=== PATIENT | female | born 1995 | race Caucasian/White ===

== ENCOUNTER 2024-01-29 17:28 | Emergency (ER) | payer OTHER, SELFPAY ==
[2024-01-29 17:28] VITALS: BP 125/68
--- NOTE | 2024-01-29 17:59 | ED.GENMED ---
History of Present Illness
General
Chief Complaint: Problems
Source: patient
Exam Limitations: none
Time Seen by Provider: 01/29/24 17:53
History of Present Illness
History of Present Illness:
See MDM
Past History
Past History
ED Past Medical History: Other
ED Past Surgical History: None
Social History
Tobacco: Non-smoker
Alcohol: Occasional
Personal: Single
Living: alone
Phy Exam
Physical Exam
Physical Exam:
See MDM
Course
Orders/Labs/Results
Orders:
Orders
01/29/24 17:58
US W Transvaginal Urgent
Reason For Exam: vaginal bleeding, 6wks preg
01/29/24 18:04
Type+Screen Urgent
Complete Blood Count/With Diff Urgent
Comprehensive Metabolic Panel Urgent
HCG, Beta Quantitative [Beta HCG Quantitative] Urgent
Is this a screen?: No
Abnormal Lab Results
01/29/24
18:04
RBC 4.03 L 10^6/uL
(4.20-5.40)
Hct 34.9 L %
(37.0-47.0)
MPV 11.2 H fL
(7.4-10.4)
Absolute Lymphs (auto) 3.7 H 10^3/uL
(1.2-3.4)
Absolute Monos (auto) 0.8 H 10^3/uL
(0.1-0.6)
Potassium 3.3 L mmol/L
(3.5-5.1)
Creatinine 0.5 L mg/dL
(0.6-1.0)
Glucose 116 H mg/dl
(70-99)
01/29/24 18:04
01/29/24 18:04
Vital Signs
Initial and Last Documented VS:
Initial Vital Signs
Temp Pulse Resp BP Pulse Ox
98.7 F 79 18 125/68 100
01/29/24 17:28 01/29/24 17:28 01/29/24 17:28 01/29/24 17:28 01/29/24 17:28
Last Documented Vital Signs
Temp Pulse Resp BP Pulse Ox
98.7 F 79 18 125/68 100
01/29/24 17:28 01/29/24 17:28 01/29/24 17:28 01/29/24 17:28 01/29/24 17:28
Information
Weeks gestation: Weeks: (6)
Location: Location: (unknown)
MDM/Problems Addressed
Differential Diagnosis Includes:
HPI and MDM Narrative:
28-year-old female with G1, P0 at approximate 6 weeks gestation is presenting for reevaluation of pelvic mass. Patient had vaginal bleeding x 1 on . She had ultrasound at outside and was told that she could have a complex pelvic mass. At
that time, patient states her beta quant was 1327. Will repeat ultrasound and repeat beta quant. Patient unsure about her blood type
Physical exam
General: Well appearing and non-toxic
HEENT: protecting airway
Neck: appears supple
CV: No evidence of cyanosis
Resp: No accessory muscle use
Abd: Non-distended. Soft and nontender
Extremities: No deformities
Neuro: alert
Psych: Normal affect
Skin: Intact
Problems Addressed including Acute and Chronic Conditions affecting care:
1. vaginal bleeding
Acuity: acute
Prognosis: stable
Details: We discussed normal bleeding versus ectopic versus miscarriage. Will repeat beta quant and ultrasound. Currently, patient has no abdominal pain
2. [ ]
Acuity: acute
Prognosis: stable
Details:
3. [ ]
Acuity: acute
Prognosis: stable
Details:
4. [ ]
Acuity: acute
Prognosis: stable
Details:
5. [ ]
Acuity:
Prognosis:
Details:
Updates
Case discussed with radiology who indicated that the ultrasound is suspicious for ectopic . This was relayed to OB who also evaluated the ultrasound. Based on how early she is and that she has no pain, it was suggested that she repeat the
ultrasound and beta on Tuesday. Since patient does not have any follow-up, she will have to come back to the emergency department for this testing
Patient understands strict return precaution
Differential Diagnosis (but not limited to): Miscarriage, ectopic
Testing considered: Urinalysis but she denies symptoms
Drug therapy (if applicable): OTC meds, please see d/c instruction regarding Rx drugs
Amount and/or Complexity of Data Reviewed
Clinical info obtained from: Patient
External data reviewed: N/A
Labs I independently reviewed (but not limited to): Beta Quant 3000
Radiology: Ultrasound report reviewed
Pulse Ox: not hypoxic
EKG independently reviewed: N/A
Recycling Operations Manager: N/A
Critical Care: N/A
Risk of Complication:
Social Determinants of health: Good social support
Discussed with other providers: Radiology, OB
Escalation of Care includes Admit/Obs: After being observed in the Emergency Department, pt stable for discharge.
Occasional wrong word or 'sound a like' substitutions may have occurred due to the inherent limitations of voice recognition software. Read the chart carefully and recognize, using context, where substitutions have occurred.
*Critical Care Note
Total Time (30-74mins, 75-104mins- exclusive of procedures): Not Applicable
ED Attending Note
-
Portions of this chart may have been created with voice recognition software.� Occasional wrong word or��sound alike� substitutions may have occurred due to the inherent limitations of voice recognition software.
Discharge Plan
Departure
Patient Disposition: Home (Routine Discharge)
Date of Disposition: 01/29/24
Time of Disposition: 21:24
Patient with high blood pressure during this ER visit?: No
Discharge Problem:
Vaginal bleeding during
Prescriptions:
No Action
norethindrone-e.estradiol-iron [Yvette Fe 1.5/30 (28)] 1 EACH tablet
1 ea PO DAILY
infliximab [Remicade] 100 MG/10 ML recon soln
100 mg IV .EVERY 8 WEEKS
escitalopram oxalate 5 MG tablet
5 mg PO DAILY
Referrals:
Michael Patrick MD [Family Provider] -
Activity Restrictions/Additional Instructions:
As we discussed, your level is increasing as expected but the ultrasound is concerning for an ectopic . The OB was aware you are here today and evaluated the ultrasound. She suggested that you repeat the ultrasound and
level this Tuesday. Knowing that you have not yet followed up with [facility], I understand that it would likely be difficult to have this done as an outpatient. If you cannot see your OB and have this done by Tuesday, please return to the emergency
department. Your level today was 3000.
Please return for any fevers, bleeding or pain.
Interventions
Interventions:
*Risk Screen - Suicide Last Done: 01/29/24 18:01
*General Assessment Last Done: 01/29/24 18:00
*Neglect/Abuse Screening Last Done: 01/29/24 18:01
ED-Female Genitourinary Assessment Last Done: 01/29/24 18:02
Discharge Date and Time
Print Language: UZBEK
[2024-01-29 18:01] VITALS: BMI 22.8
[2024-01-29 18:11] LABS: % Basophils 0.4 % (0-2); % Eosinophils 2.6 % (0-6); % Immature Granulocytes 0.2 % (0-0.5); % Lymphocytes 35.5 % (20.5-51.1); % Monocytes 7.8 % (1.7-9.3); % Neutrophils 53.5 % (42.2-75.2); Absolute Eosinophils 0.3 10^3/uL (0-0.7); Absolute Lymphocytes 3.7 10^3/uL (1.2-3.4); Absolute Monocytes 0.8 10^3/uL (0.1-0.6); Absolute Neutrophils 5.6 10^3/uL (1.4-6.5); Hematocrit 34.9 % (37.0-47.0); Hemoglobin 12.4 g/dL (12.0-16.0); Mean Corp Hgb Conc. 35.5 g/dL (33.0-37.0); Mean Corpuscular Hgb 30.8 pg (27.0-31.0); Mean Corpuscular Volume 86.6 fL (81.0-99.0); Mean Platelet Volume 11.2 fL (7.4-10.4); Nucleated Red Blood Cells % 0 %; Platelet Count 226 10^3/uL (130-400); Red Blood Cell Count 4.03 10^6/uL (4.20-5.40); Red Cell Dist. Width 12.6 % (11.5-14.5); White Blood Cell Count 10.4 10^3/uL (4.8-10.8)
[2024-01-29 18:31] LABS: ALT (SGPT) 17 U/L (0-35); AST (SGOT) 23 U/L (14-36); Albumin 4.3 g/dl (3.5-5.0); Alkaline Phosphatase 58 U/L (38-126); Blood Urea Nitrogen 10 mg/dl (7-17); Calcium 9.2 mg/dl (8.4-10.2); Carbon Dioxide 23 mmol/L (22-30); Chloride 107 mmol/L (98-107); Estimated Creatinine Clearance 122 ml/min; Glucose 116 mg/dl (70-99); Potassium 3.3 mmol/L (3.5-5.1); Sodium 138 mmol/L (135-145); Total Bilirubin 0.6 mg/dl (0.2-1.3); Total Protein 6.8 g/dl (6.3-8.2); eGFR > 60.00
[2024-01-29 21:43] VITALS: BP 99/80
== END 2024-01-29 21:53 | disposition home or self-care (01) ==
LOC: EMR 17:28
PROVIDERS: EMERGENCY PHYSICIAN Student in an Organized Health Care Education/Training Program; FAMILY PHYSICIAN Family Medicine
DX: O20.9 Hemorrhage in early pregnancy, unspecified (principal); Z3A.01 Less than 8 weeks gestation of pregnancy
CPT/HCPCS: 99284; 76801; 76817; 80053; 84702; 85025; 86850; 86900; 86901

== ENCOUNTER 2024-02-01 10:13 | Emergency (ER) | payer OTHER, SELFPAY ==
[2024-02-01 10:22] VITALS: BP 108/76
--- NOTE | 2024-02-01 10:39 | ED.GENMED ---
History of Present Illness
General
Chief Complaint: Problems
Source: patient and records
Time Seen by Provider: 02/01/24 10:29
History of Present Illness
History of Present Illness:
28yo female currently 6 weeks with a history of Crohn's disease presenting for a concern. Patient started having vaginal bleeding last week. She was seen at an ED in the [facility] 5 days ago and had a pelvic ultrasound which
showed a complex cyst vs ectopic of the L ovary. She was discharged and returned to this ED 3 days ago for follow-up. She had repeat testing and pelvic ultrasound revealed 'In the left adnexa inferior to the left ovary, there is a rounded
hypoechoic structure with a slightly thickened peripheral echogenic margin measuring 1.6 x 1.7 x 2 cm. Findings would be deemed suspicious for an ectopic .' Plan was for repeat HCG and ultrasound yesterday. She had an outpatient
quantitative HCG which increased to around 7000. Her OB advised her to go to the ED for evaluation. Patient reports a 'feeling' in her LLQ but she denies any pain. She has no vaginal bleeding currently. No dizziness or syncope. Blood type is B+.
Past History
Past History
ED Past Medical History: Other
ED Past Surgical History: None
Social History
Tobacco: Non-smoker
Alcohol: Occasional
Personal: Single
Living: alone
Phy Exam
General Physical Exam
General Presentation: well appearing and no apparent distress
General age: appears stated age
General Skin: warm and dry
General Habitus: normal
General Mental: alert
General Hydration: appears well hydrated
Cardiovascular Exam
Cardiovascular Exam: regular rate/rhythm and no murmur
Pulmonary Exam
Pulmonary Exam: lungs clear, no respiratory distress, no crackles and no wheezing
Gastrointestinal Exam
Gastrointestinal Exam: non tender, soft and non distended
Skin Exam
Skin Exam: normal color and warm/dry
Psychiatric Exam
Psychiatric Exam: normal mood/affect
Course
Orders/Labs/Results
Orders:
Orders
02/01/24 Lunch
NPO
Allow oral meds: No
Allow clear liquids: No
NPO with Ice Chips: No
02/01/24 10:37
w/ Transvaginal US [US W Transvaginal] Urgent
Comment:
Reason For Exam: F/u suspected ectopic
02/01/24 10:54
Beta HCG Quantitative Urgent
Is this a screen?: No
Complete Blood Count/With Diff Urgent
02/01/24 14:30
Methotrexate Sodium/Pf [Methotrexate] 40 mg Syringe [Syringe Non-Pump] 0 ml IM BID@1430,1431
Abnormal Lab Results
02/01/24
10:54
RBC 4.05 L 10^6/uL
(4.20-5.40)
Hct 34.7 L %
(37.0-47.0)
MPV 11.4 H fL
(7.4-10.4)
02/01/24 10:54
Vital Signs
Initial and Last Documented VS:
Initial Vital Signs
Temp Pulse Resp BP Pulse Ox
98.4 F 83 18 108/76 99
02/01/24 10:22 02/01/24 10:22 02/01/24 10:22 02/01/24 10:22 02/01/24 10:22
Last Documented Vital Signs
Temp Pulse Resp BP Pulse Ox
98.4 F 78 18 121/70 98
02/01/24 10:22 02/01/24 14:47 02/01/24 14:47 02/01/24 14:47 02/01/24 14:47
Information
Weeks gestation: Weeks: (6)
Location: Location: (L ovary, ectopic)
MDM/Problems Addressed
Differential Diagnosis Includes:
28yoF here for f/u of a suspected ectopic . Seen in the ED 3 days ago for the same. Here for repeat testing. Relatively asymptomatic currently. No vaginal bleeding, syncope, abdominal pain. She is afebrile and hemodynamically stable. She is
well appearing in no distress. Abdominal exam is benign. Differential diagnosis includes but is not limited to: ectopic , intrauterine , low clinical suspicion of rupture
Initial ED plan: Check CBC, quantitative HCG, and pelvic ultrasound.
*Critical Care Note
Total Time (30-74mins, 75-104mins- exclusive of procedures): Not Applicable
Update Note
Update Note:
HCG is increasing to 7658 (from 3000 three days ago). Repeat ultrasound today shows findings consistent with a L ectopic . There is a small amount of pelvic free fluid. Case was discussed with OBGYN. Dr. Breaux evaluated patient at bedside.
Plan is for methotrexate administration and discharge. She will need close outpatient f/u and repeat blood work on day 4 and 7. Recommendations discussed with patient and medication administered by nursing staff. Strict ED return precautions were
discussed including severe pain, dizziness, syncope, fevers. Patient discharged in stable condition.
ED Attending Note
-
Portions of this chart may have been created with voice recognition software.� Occasional wrong word or��sound alike� substitutions may have occurred due to the inherent limitations of voice recognition software.
Discharge Plan
Departure
Patient Disposition: Home (Routine Discharge)
Date of Disposition: 02/01/24
Time of Disposition: 14:32
Patient with high blood pressure during this ER visit?: No
Discharge Problem:
Ectopic
Instructions: Methotrexate, Ectopic - Discharge instructions
Prescriptions:
No Action
norethindrone-e.estradiol-iron [Yvette Martinez 1.5 (28)] 1 EACH tablet
1 ea PO DAILY
infliximab [Remicade] 100 MG/10 ML recon soln
100 mg IV .EVERY 8 WEEKS
escitalopram oxalate 5 MG tablet
5 mg PO DAILY
Referrals:
Michael Patrick MD [Family Provider] -
Activity Restrictions/Additional Instructions:
Avoid strenuous activity and intercourse. You will need to have repeat blood work done on Tuesday and Tuesday to follow your HCG levels.
Please follow-up closely with your OBGYN.
Return to the ER with any worsening symptoms, severe pain, dizziness, passing out, fevers.
Interventions
Interventions:
*Risk Screen - Suicide Last Done: 02/01/24 10:25
*General Assessment Last Done: 02/01/24 10:25
*Neglect/Abuse Screening Last Done: 02/01/24 10:25
ED- Fall Risk Assessment Last Done: 02/01/24 13:03
*ED COVID-19 Vaccine History Last Done: 02/01/24 15:04
*Nursing Disposition Last Done: 02/01/24 15:04
ED-Female Genitourinary Assessment Last Done: 02/01/24 13:03
Discharge Date and Time
Discharge Date/Time: 02/01/24 14:50
Print Language: UKRAINIAN
[2024-02-01 11:14] LABS: % Basophils 0.4 % (0-2); % Eosinophils 1.7 % (0-6); % Immature Granulocytes 0.3 % (0-0.5); % Lymphocytes 26.2 % (20.5-51.1); % Monocytes 6.7 % (1.7-9.3); % Neutrophils 64.7 % (42.2-75.2); Absolute Eosinophils 0.2 10^3/uL (0-0.7); Absolute Lymphocytes 2.3 10^3/uL (1.2-3.4); Absolute Monocytes 0.6 10^3/uL (0.1-0.6); Absolute Neutrophils 5.7 10^3/uL (1.4-6.5); Hematocrit 34.7 % (37.0-47.0); Hemoglobin 12.4 g/dL (12.0-16.0); Mean Corp Hgb Conc. 35.7 g/dL (33.0-37.0); Mean Corpuscular Hgb 30.6 pg (27.0-31.0); Mean Corpuscular Volume 85.7 fL (81.0-99.0); Mean Platelet Volume 11.4 fL (7.4-10.4); Nucleated Red Blood Cells % 0 %; Platelet Count 220 10^3/uL (130-400); Red Blood Cell Count 4.05 10^6/uL (4.20-5.40); Red Cell Dist. Width 12.6 % (11.5-14.5); White Blood Cell Count 8.9 10^3/uL (4.8-10.8)
[2024-02-01 12:00] VITALS: BP 111/70
[2024-02-01 13:52] VITALS: BMI 21.3
--- NOTE | 2024-02-01 13:56 | CON.MD ---
Consultation - Medical
-
28yo at 6wks gestation who presents to the ER to f/u after being diagnosed with possible ectopic 3 days ago. Pt was seen in the ER for scant vaginal spotting on 01/28, and had an HCG qn 3000 and US that showed no IUP and possible
ectopic in the left adnexa measuring 1.6 x 1.7 x 2cm. As pt was stable and this was the first data point this , she was asked to come back to the ER for repeat hcg qn and US in 48hrs.
Today, she continues to deny any pain and is not having any bleeding now. HCG has risen to 7658 and US again shows suspicion for left adnexal ectopic , this time measuring 1.5 x 1.1 x 1.4cm, possible YS within, no IUP.
ROS: +as above, o/w neg
Meds: Remicade, PNV
NKDA
PMH: Crohn's
PSH: sinus surgery, fractured finger
ObHx: G1
GynHx: denies STI hx or abn paps
Social: denies T/I, occ etoh
FmHx: non-contributory
PE: VSS- see below
Gen: NAD, WD/WN
Abd: soft, NTTP, ND, no mass
Extr: no c/c/e
Labs: see below
Pelvic US: see below
A/P 28yo with 6wk ectopic in the left adnexa.
Hemodynamically stable and asymptomatic.
Pt counseled on R/B of mgmt options: expectant (not advised) vs. medical mgmt with MTX (to include need for reliable follow-up with her electrical tech for labs; some risk with Remicade for infection, but should be okay to use with caution) vs. surgical mgmt.
Patient desires MTX therapy.
-MTX to be given today: 50mg/m2 IM, based on BSA. ER PA will get accurate weight today. Pharmacy can help calculate dose.
-Pt advised to call her electrical tech at [facility], Dr. Morales Rapp, to establish plan for blood work and follow-up. She should have repeat HCG qn on day 4 (Tuesday) and day 7 (Tuesday next week), and then will need weekly labs until HCG qn is <5. Pt
expressed understanding and is reliable to follow-up.
-Pt advised to avoid strenuous activity and intercourse until ectopic resolves
-ER Return precautions given for pain not controlled with Tylenol, and/or severe pain of any sort, or f/c
-B pos, RhoGAM not indicated
-Pt advised to stop her PNV until ectopic resolves. She should resume taking PNV after ectopic resolves, prior to trying to conceive again.
-Pt advised to seek early confirmation of IUP with subsequent pregnancies, as there is an increased risk of ectopic in future pregnancies
Luly Breaux DO
Vital Signs / Labs
-
Vital Signs and Labs:
Temp Pulse Resp BP Pulse Ox
98.4 F 83 18 111/70 98
02/01/24 10:22 02/01/24 12:00 02/01/24 12:00 02/01/24 12:00 02/01/24 12:00
02/01/24 10:54
02/01/24
10:54
RBC 4.05 L
Hct 34.7 L
MPV 11.4 H
HCG quant: 3000 (01/28) --> 7658 (01/31)
B pos, abs neg
Chem panel 01/29/24: creat 0.5, AST 23, ALT 17
[2024-02-01 14:47] VITALS: BP 121/70
[2024-02-01] MEDS: METHOTREXATE 1.6 MG IM ×2 (14:49→14:53)
== END 2024-02-01 14:50 | disposition home or self-care (01) ==
LOC: EMR 10:13
PROVIDERS: Physician Assistant; EMERGENCY PHYSICIAN Emergency Medicine; FAMILY PHYSICIAN Family Medicine; OTHER PHYSICIAN Obstetrics & Gynecology
DX: O00.90 Unspecified ectopic pregnancy without intrauterine pregnancy (principal); Z3A.01 Less than 8 weeks gestation of pregnancy; O99.611 Diseases of the digestive system complicating pregnancy, first trimester; K50.90 Crohn's disease, unspecified, without complications
CPT/HCPCS: 99284; 96372; 76801; 76817; 84702; 85025; J9260

== ENCOUNTER 2024-02-07 12:10 | Emergency (ER) | payer OTHER, SELFPAY ==
[2024-02-07 12:12] VITALS: BP 113/72
--- NOTE | 2024-02-07 13:01 | ED.GENMED ---
History of Present Illness
<Leta Diaz PA-C - Last Filed: 02/08/24 11:24>
General
Chief Complaint: Problems
Source: patient
Exam Limitations: none
Time Seen by Provider: 02/07/24 12:41
Nursing documentation reviewed up to this point in time: agreed with
History of Present Illness
History of Present Illness:
Patient is a 28-year-old at approximately 7 weeks gestation presenting to the emergency department from her [facility] for further evaluation based on failure to see declining hCG values in setting of known ectopic . Patient was seen in
our emergency department 6 days ago with an hCG value of 7658 and an ultrasound which showed a left adnexal mass concerning for a possible ectopic . Patient was seen by [facility] at that time where it was decided that she would receive IM
methotrexate. Patient follows with [place] [facility] had repeat blood work on both 02/03 and 02/06 with values of14,111 and 14,791 respectively. Patient was sent to the emergency department by her [facility] [employer] for further management, repeat IM methotrexate
for surgical management
Patient is asymptomatic at this time. She denies any bleeding, abdominal pain, lightheadedness, dizziness, or shortness of breath.
Patient's blood type is B+.
Past History
<Leta Diaz PA-C - Last Filed: 02/08/24 11:24>
Past History
ED Past Medical History: Other
ED Past Surgical History: None
Social History
Tobacco: Non-smoker
Alcohol: Occasional
Personal: Single
Living: alone
Review of Systems
<Leta Diaz PA-C - Last Filed: 02/08/24 11:24>
Review of Systems
Allergies reviewed?: Yes
All Other Systems: ROS reviewed and negative except as documented in HPI and ROS
Phy Exam
<Leta Diaz PA-C - Last Filed: 02/08/24 11:24>
Physical Exam
Physical Exam:
Vitals: Patient's vital signs are stable. Afebrile
General: Patient is well appearing, no acute distress. Nontoxic appearing.
Skin: Warm and dry, no rashes or lesions
Head: Normocephalic, atraumatic
Eyes: Sclera nonicteric. EOMs intact. No nystagmus.
Throat: Protecting airway
Neck: Normal ROM, no cervical spine tenderness, no meningismus
Cardiac: Regular rate and rhythm, no murmurs.
Pulm: Normal respiratory effort, no wheezes, rales, rhonchi heard on exam.
Abdomen: Abdomen soft. No abdominal tenderness. No palpable masses.
Extremities: No evidence of cyanosis or edema. Great distal pulses
Neuro: AAOx3. CN II-XII intact. No focal neurologic deficits.
Psychiatric: Normal affect.
Course
<Leta Diaz PA-C - Last Filed: 02/08/24 11:24>
Orders/Labs/Results
Orders:
Orders
02/07/24 14:23
Consult [facility] [[facility] CONSULT] Urgent
Consulting Provider: Heidi Munoz
Was physician already notified: Yes
02/07/24 14:36
Type+Screen Urgent
Complete Blood Count/With Diff Urgent
Comprehensive Metabolic Panel Urgent
02/07/24 16:00
Methotrexate Sodium/Pf [Methotrexate] 41.25 mg Intramuscular Injection 0 ml IM BID@1600,1601
Abnormal Lab Results
02/07/24
14:36
RBC 3.83 L 10^6/uL
(4.20-5.40)
Hgb 11.7 L g/dL
(12.0-16.0)
Hct 32.7 L %
(37.0-47.0)
MPV 11.6 H fL
(7.4-10.4)
Absolute Monos (auto) 0.7 H 10^3/uL
(0.1-0.6)
Glucose 106 H mg/dl
(70-99)
02/07/24 14:36
02/07/24 14:36
Vital Signs
Initial and Last Documented VS:
Initial Vital Signs
Temp Pulse Resp BP Pulse Ox
98.7 F 76 18 113/72 98
02/07/24 12:12 02/07/24 12:12 02/07/24 12:12 02/07/24 12:12 02/07/24 12:12
Last Documented Vital Signs
Temp Pulse Resp BP Pulse Ox
98.7 F 78 17 98/56 100
02/07/24 12:12 02/07/24 16:00 02/07/24 16:00 02/07/24 16:00 02/07/24 16:15
Information
Weeks gestation: Weeks: (7)
Location: Location: (Left adnexa)
<Javier Del Cid, DO - Last Filed: 02/07/24 14:01>
Orders/Labs/Results
Orders:
Orders
02/07/24 14:23
Consult [facility] [[facility] CONSULT] Urgent
Consulting Provider: Heidi Munoz
Was physician already notified: Yes
02/07/24 14:36
Type+Screen Urgent
Complete Blood Count/With Diff Urgent
Comprehensive Metabolic Panel Urgent
02/07/24 16:00
Methotrexate Sodium/Pf [Methotrexate] 41.25 mg Intramuscular Injection 0 ml IM BID@1600,1601
Abnormal Lab Results
02/07/24
14:36
RBC 3.83 L 10^6/uL
(4.20-5.40)
Hgb 11.7 L g/dL
(12.0-16.0)
Hct 32.7 L %
(37.0-47.0)
MPV 11.6 H fL
(7.4-10.4)
Absolute Monos (auto) 0.7 H 10^3/uL
(0.1-0.6)
Glucose 106 H mg/dl
(70-99)
02/07/24 14:36
02/07/24 14:36
Vital Signs
Initial and Last Documented VS:
Initial Vital Signs
Temp Pulse Resp BP Pulse Ox
98.7 F 76 18 113/72 98
02/07/24 12:12 02/07/24 12:12 02/07/24 12:12 02/07/24 12:12 02/07/24 12:12
Last Documented Vital Signs
Temp Pulse Resp BP Pulse Ox
98.7 F 78 17 98/56 100
02/07/24 12:12 02/07/24 16:00 02/07/24 16:00 02/07/24 16:00 02/07/24 16:15
<Leta Diaz PA-C - Last Filed: 02/08/24 11:24>
MDM/Problems Addressed
Differential Diagnosis Includes:
Not limited to: ectopic
MDM/Problems Addressed:
Patient is a 28 at approximately 7 weeks gestation with left adnexal ectopic presenting 6 days s/p MTX injection due to inappropriate decline of HCG levels. Patient tolerated MTX well. Patient asymptomatic and hemodynamically stable.
Abdomen soft and nontender without any palpable masses. Patient follows with [facility]. Reviewed lab results. HCG of 7,658 01/31 prior to IM MTX which has increased to 14,791 today. Did consult OBGYN, Dr. Munoz who came to see patient at
bedside. Options were discussed, repeat IM MTX vs surgical management. Ultimately - it was decided that patient will receive repeat IM MTX. Dose was calculated and ordered by Dr. Munoz. Patient was given lab slips for repeat HCG. Blood type B+- no
indication for rhogam.
Patient received IM MTX. Patient remains hemodynamically stable. Return precautions discussed with patient. Stable for discharge. She will follow-up with her OBGYN.
Chronic conditions affecting care:
N/A
Acute Exacerbation and/or Progression of Chronic Illness:
N/A
<Leta Diaz PA-C - Last Filed: 02/08/24 11:24>
*Pulse Oximetry
Patient hypoxic: no
*EKG
Interpreted by ED Provider?: NA
*Organic Chemistry Teacher Interpretation
Rate: Organic Chemistry Teacher- N/A
*Critical Care Note
Total Time (30-74mins, 75-104mins- exclusive of procedures): Not Applicable
Data Reviewed
Review of Other/Old Records Reveals: Labs (Prior hCG levels), Records (ER visit from 01/31 for ectopic ) and Radiology Studies (US report form 01/31 showing left adnexal mass suspicious for ectopic )
<Leta Diaz PA-C - Last Filed: 02/08/24 11:24>
Patient Management
Discussion with other providers: Cop Winder (OBGYN - Dr. Munoz)
ED Attending Note
<Leta Diaz PA-C - Last Filed: 02/08/24 11:24>
-
Portions of this chart may have been created with voice recognition software.� Occasional wrong word or��sound alike� substitutions may have occurred due to the inherent limitations of voice recognition software.
<Javier Del Cid DO - Last Filed: 02/07/24 14:01>
ED Attending Note
Patient seen and examined by attending physician: Yes
I performed the substantive portion of visit, reviewed & personally made and approve the management plan that is documented in note by myself or SANDY.: Yes
ED Attending Note:
I have seen and evaluated the patient with a [id number] encounter. I have spoken to the advance practicer provider and involved in the medical history, the physical exam, medical decision making.
Evaluation and management service: agree unless noted differently below.
Results interpretation: agree unless noted differently below.
Focused HPI: 28-year-old female presenting back to the emergency department for possible methotrexate. She was diagnosed with ectopic and given dose of methotrexate. Repeat blood work shows that her beta-hCG is continuing to rise. She
denies abdominal pain
Physical exam: Sitting in bed comfortably. No acute distress
Medical Decision Making: Will discuss case with OB in regards to redosing methotrexate versus surgical intervention. Patient is stable
Discharge Plan
Departure
Patient Disposition: Home (Routine Discharge)
Date of Disposition: 02/07/24
Time of Disposition: 16:15
Patient with high blood pressure during this ER visit?: Yes
Discharge Problem:
Ectopic
Instructions: Ectopic ED
Prescriptions:
No Action
norethindrone-e.estradiol-iron [Yvette Fe 1.5 (28)] 1 EACH tablet
1 ea PO DAILY
infliximab [Remicade] 100 MG/10 ML recon soln
100 mg IV .EVERY 8 WEEKS
escitalopram oxalate 5 MG tablet
5 mg PO DAILY
Referrals:
Michael Patrick MD [Family Provider] -
Activity Restrictions/Additional Instructions:
RETURN TO THE EMERGENCY DEPARTMENT WITH ANY ABDOMINAL PAIN, DIZZINESS, LIGHTHEADEDNESS, SHORTNESS OF BREATH, VAGINAL BLEEDING, WORSENING IN CURRENT SYMPTOMS, OR ANY OTHER CONCERNS
-As discussed�it is very importantly follow-up with your [facility] for repeat lab work this week to further trend your HCG level.
-Stay well-hydrated.
Monitor your symptoms closely and return to the emergency department any acute worsening/new symptoms.
Interventions
Interventions:
*Risk Screen - Suicide Last Done: 02/07/24 14:42
*General Assessment Last Done: 02/07/24 16:57
*Neglect/Abuse Screening Last Done: 02/07/24 14:42
ED- Fall Risk Assessment Last Done: 02/07/24 16:57
*ED COVID-19 Vaccine History Last Done: 02/07/24 16:57
*Nursing Disposition Last Done: 02/07/24 16:57
ED-Female Genitourinary Assessment Last Done: 02/07/24 14:01
Discharge Date and Time
Discharge Date/Time: 02/07/24 16:58
Print Language: LATVIAN
[2024-02-07 14:40] VITALS: BMI 22.3
[2024-02-07 14:41] VITALS: BP 97/55
[2024-02-07 14:54] LABS: % Basophils 0.6 % (0-2); % Immature Granulocytes 0.2 % (0-0.5); % Lymphocytes 36.7 % (20.5-51.1); % Monocytes 7.8 % (1.7-9.3); % Neutrophils 51.7 % (42.2-75.2); Absolute Basophils 0.1 10^3/uL (0-0.2); Absolute Eosinophils 0.3 10^3/uL (0-0.7); Absolute Lymphocytes 3.2 10^3/uL (1.2-3.4); Absolute Monocytes 0.7 10^3/uL (0.1-0.6); Absolute Neutrophils 4.4 10^3/uL (1.4-6.5); Hematocrit 32.7 % (37.0-47.0); Hemoglobin 11.7 g/dL (12.0-16.0); Mean Corp Hgb Conc. 35.8 g/dL (33.0-37.0); Mean Corpuscular Hgb 30.5 pg (27.0-31.0); Mean Corpuscular Volume 85.4 fL (81.0-99.0); Mean Platelet Volume 11.6 fL (7.4-10.4); Nucleated Red Blood Cells % 0 %; Platelet Count 212 10^3/uL (130-400); Red Blood Cell Count 3.83 10^6/uL (4.20-5.40); Red Cell Dist. Width 12.5 % (11.5-14.5); White Blood Cell Count 8.6 10^3/uL (4.8-10.8)
[2024-02-07 15:18] LABS: ALT (SGPT) 14 U/L (0-35); AST (SGOT) 22 U/L (14-36); Albumin 4.2 g/dl (3.5-5.0); Alkaline Phosphatase 55 U/L (38-126); Blood Urea Nitrogen 10 mg/dl (7-17); Calcium 9.1 mg/dl (8.4-10.2); Carbon Dioxide 24 mmol/L (22-30); Chloride 107 mmol/L (98-107); Estimated Creatinine Clearance 122 ml/min; Glucose 106 mg/dl (70-99); Potassium 3.9 mmol/L (3.5-5.1); Sodium 138 mmol/L (135-145); Total Bilirubin 0.4 mg/dl (0.2-1.3); Total Protein 6.6 g/dl (6.3-8.2); eGFR > 60.00
[2024-02-07 15:31] VITALS: BP 102/63
[2024-02-07 16:00] VITALS: BP 98/56
--- NOTE | 2024-02-07 16:16 | CON.MD ---
Consultation - Medical
-
28yo with a known left ectopic returns to the ER at the request of her SOFTWARE SECURITY ARCHITECT due to inappropriate HCG changes after receiving methotrexate. Patient had an US on 01/31 that showed a left adnexal soft tissue mass 1.5cm with a yolk sac c/w
an ectopic . She received mtx that day, since then she has followed up with her SOFTWARE SECURITY ARCHITECT Dr. Rapp at [facility] and her labs through their office showed
02/03: 14,111
02/06: 14,791
She was then advised by her physician to return to the ER for mgmt either surgery or repeat MTX dosing. Currently patient denies VB, has NO pelvic pain. No UTI symptoms, normal appetite, denies n/v. Regular BM.
PMHx: Crohn's
PSHx: sinus surgery, fractured finger
POBHx: Prime
PGYNHx: negative
FHx: no contributory
SHx: neg x3
Meds: Remicade, lexapro
All: NKDA
Vitals: 102/63 P76 R18 T98.7 SpO2 100%
Gen: nad aaox3
Abd: soft, non tender, nd, no r/g
CBC: 8.6/11.7/212
AST:22
ALT: 14
Cr: 0.6
A/P: 28yo with Left ectopic
1. Patient with failed first course of MTX. i explained that we would like to see at least a 15% decline in values between day 4 and 7 and her values increased slightly. She is hemodynamically stable and has no acute abdomen. I have NO suspicion for
a ruptured ectopic at this time. However I am slightly concerned with the HCG being this high that a second course of MTX may not be successful. I expressed my concern to the patient, stating that there is a higher failure rate with HCG this high.
That being said, it is not absolutely contraindicated so I can offer a repeat course as an option. Alternatively, we can proceed with surgery which I explained will be attempted laparoscopically with removal of the left tube containing the ectopic.
Patient really wants to avoid surgery and would like try the MTX again. I gave strict instructions on when to return to the ER- any severe pain as this can be a sign of tubal rupture which is a surgical emergency. Also gave her reading material on
medications and activities to avoid after getting this medicine, as well as when she needs to have repeat labs performed. Patient plans to have repeat labs done through her own SOFTWARE SECURITY ARCHITECT office but I did give her script for blood work in case she needs
it.
[2024-02-07] MEDS: METHOTREXATE 1.65 MG IM ×2 (16:37→16:38)
== END 2024-02-07 16:58 | disposition home or self-care (01) ==
LOC: EMR 12:10
PROVIDERS: Physician Assistant; CONSULT PHYSICIAN Obstetrics & Gynecology; EMERGENCY PHYSICIAN Student in an Organized Health Care Education/Training Program; FAMILY PHYSICIAN Family Medicine
DX: O00.80 Other ectopic pregnancy without intrauterine pregnancy (principal); Z3A.01 Less than 8 weeks gestation of pregnancy
CPT/HCPCS: 99284; 96372; 80053; 85025; 86850; 86900; 86901; J9260

== ENCOUNTER 2024-02-12 17:14 | Day surgery (SDC) | payer OTHER, SELFPAY ==
[2024-02-12] VITALS (15 sets, daily range): BP systolic 98–116; BP diastolic 57–89; BMI 24.9
[2024-02-12] MEDS: NSS 1000 IV (12:29)
[2024-02-12 12:42] LABS: % Basophils 0.5 % (0-2); % Eosinophils 2.3 % (0-6); % Immature Granulocytes 0.2 % (0-0.5); % Lymphocytes 34.3 % (20.5-51.1); % Monocytes 6.3 % (1.7-9.3); % Neutrophils 56.4 % (42.2-75.2); Absolute Eosinophils 0.2 10^3/uL (0-0.7); Absolute Monocytes 0.6 10^3/uL (0.1-0.6); Absolute Neutrophils 4.9 10^3/uL (1.4-6.5); Hematocrit 32.9 % (37.0-47.0); Hemoglobin 11.9 g/dL (12.0-16.0); Mean Corp Hgb Conc. 36.2 g/dL (33.0-37.0); Mean Corpuscular Hgb 30.7 pg (27.0-31.0); Mean Platelet Volume 11.3 fL (7.4-10.4); Nucleated Red Blood Cells % 0 %; Platelet Count 197 10^3/uL (130-400); Red Blood Cell Count 3.87 10^6/uL (4.20-5.40); Red Cell Dist. Width 12.5 % (11.5-14.5); White Blood Cell Count 8.7 10^3/uL (4.8-10.8)
[2024-02-12 13:22] LABS: Blood Urea Nitrogen 10 mg/dl (7-17); Calcium 9.3 mg/dl (8.4-10.2); Carbon Dioxide 21 mmol/L (22-30); Chloride 107 mmol/L (98-107); Estimated Creatinine Clearance 122 ml/min; Glucose 127 mg/dl (70-99); Potassium 3.7 mmol/L (3.5-5.1); Sodium 138 mmol/L (135-145); eGFR > 60.00
--- NOTE | 2024-02-12 15:43 | ED.GENMED ---
History of Present Illness
General
Chief Complaint: Problems
Source: patient
Exam Limitations: none
Time Seen by Provider: 02/12/24 12:18
History of Present Illness
History of Present Illness:
28-year-old female history of currently being treated for ectopic . Second dose of methotrexate. Quantitative hCGs are slightly trending down. However today she developed increasing pain in the left lower quadrant/pelvis and increased
bleeding. Moderate bleeding described as a slightly heavy menstrual-like bleeding. No fever chills or other complaints.
Past History
Past History
ED Past Medical History: Other (Known ectopic ) and Other (Crohn's disease)
ED Past Surgical History: None
Social History
Tobacco: Non-smoker
Alcohol: Occasional
Personal: Single
Living: alone
Phy Exam
Physical Exam
Physical Exam:
GENERAL: Alert and oriented in no apparent distress
EYE: Orbits normal.
NECK: Supple
CARDIAC: Regular rate and rhythm without any obvious murmurs.
LUNGS: Clear breath sounds,normal
ABDOMEN: Soft, moderate tenderness left pelvis. No rebound or guarding no mass or hernia.
NEUROLOGICAL: Alert and oriented , grossly non-focal
SKIN: Warm and dry, no rash or lesion, no discoloration, skin intact.
MUSCULOSKELETAL: No edema,no deformity.Good color
PSYCH: Normal and appropriate interaction.
Course
Orders/Labs/Results
Orders:
Orders
02/12/24 12:28
IV Insert/Care/Rem.- Treatment PRN
0.9% Sodium Chloride 1000 ml [Nss] 1,000 ml IV BOLUS
US W Transvaginal Urgent
Reason For Exam: Known left ectopic. Increased pain and bleeding
02/12/24 12:30
Basic Metabolic Panel Urgent
Beta HCG Quantitative Urgent
Is this a screen?: No
Complete Blood Count/With Diff Urgent
02/12/24 12:35
Type+Screen Urgent
02/12/24 Dinner
NPO
Allow oral meds: No
Allow clear liquids: No
02/12/24 15:42
HYDROmorphone [Dilaudid] 0.25 mg IV PACU-Q5MPRN PRN
HYDROmorphone [Dilaudid] 0.5 mg IV PACU-Q5MPRN PRN
Ondansetron Injectable [Zofran] 4 mg IV PACU-ONCEPRN PRN
Prochlorperazine [Compazine] 5 mg IV PACU-ONCEPRN PRN
Notify MD As Directed
Notify physician if: for SDS patients with known or suspected sleep obstructive sleep apnea, monitor in the
PACU.
Notify MD for any apneic/desaturation episodes
O2 Therapy [RESP] Urgent
Titrate/Wean O2 to maintain O2 sat greater than (%): 92
Special Instructions: -Provide supplemental oxygen to achieve O2 sat of 92% or greater.
-After 15 min, may wean O2 and discontinue if patient is able to maintain O2 sat of 92%
or greater during recovery period.
If patient is a discharge home, without oxygen therapy, notify anestheiologist if
unable to maintain O2 SAT of 92% or greater on room air for MD clearance.
02/12/24 15:45
Normosol (Mult Electrolytes) [Normosol-R] 1,000 ml IV PER PROTOCOL
02/12/24 16:03
Acetaminophen 1000MG/100Ml [Ofirmev] 1,000 mg in 100 ml IV ONCE
Acetaminophen IV Indication:: ED Narcotic Naive Pt-ONCE
Abnormal Lab Results
02/12/24
12:30
RBC 3.87 L 10^6/uL
(4.20-5.40)
Hgb 11.9 L g/dL
(12.0-16.0)
Hct 32.9 L %
(37.0-47.0)
MPV 11.3 H fL
(7.4-10.4)
Carbon Dioxide 21 L mmol/L
(22-30)
Glucose 127 H mg/dl
(70-99)
02/12/24 12:30
02/12/24 12:30
Vital Signs
Initial and Last Documented VS:
Initial Vital Signs
Temp Pulse Resp BP Pulse Ox
97.4 F 74 16 104/69 98
02/12/24 12:04 02/12/24 12:04 02/12/24 12:04 02/12/24 12:04 02/12/24 12:04
Last Documented Vital Signs
Temp Pulse Resp BP Pulse Ox
97.4 F 74 16 103/74 99
02/12/24 12:04 02/12/24 12:04 02/12/24 12:04 02/12/24 14:38 02/12/24 14:39
Information
Weeks gestation: Weeks: (11)
Location: Location: (left adnexa)
*Radiology
Radiology exam reviewed: radiology read reviewed (Persistent ectopic)
*Pulse Oximetry
Patient hypoxic: no
*Critical Care Note
Total Time (30-74mins, 75-104mins- exclusive of procedures): Not Applicable
Update Note
Update Note:
Discussed with [employer]OPELLANT ASSEMBLER. Discussed the patient. Patient will go to the OR for persist and ectopic
ED Attending Note
-
Portions of this chart may have been created with voice recognition software.� Occasional wrong word or��sound alike� substitutions may have occurred due to the inherent limitations of voice recognition software.
Discharge Plan
Departure
Patient Disposition: Admit
Date of Disposition: 02/12/24
Time of Disposition: 15:43
Presentation/result/management discussed w/ accepting MD/DO: defour
Discharge Problem:
Ectopic . Failed methotrexate
Prescriptions:
No Action
norethindrone-e.estradiol-iron [Yvette Fe 1.5 ()] 1 EACH tablet
1 ea PO DAILY
infliximab [Remicade] 100 MG/10 ML recon soln
100 mg IV .EVERY 8 WEEKS
escitalopram oxalate 5 MG tablet
5 mg PO DAILY
Referrals:
Michael Patrick MD [Family Provider] -
Interventions
Interventions:
*Risk Screen - Suicide Last Done: 02/12/24 12:38
*General Assessment Last Done: 02/12/24 12:40
*Neglect/Abuse Screening Last Done: 02/12/24 12:38
ED- Fall Risk Assessment Last Done: 02/12/24 12:39
ED-Female Genitourinary Assessment Last Done: 02/12/24 12:22
Discharge Date and Time
Print Language: UZBEK
[2024-02-12] MEDS: OFIRMEV 100 IV (16:09)
--- NOTE | 2024-02-12 16:29 | HP.FOC2 ---
Focused History & Physical
Chief Complaint
HPI:
Chief Complaint: Abdominal pain and bleeding
HPI / Indication for Planned Procedure:
28yo who returns to the ER due to new onset left lower quadrant abdominal pain and moderate-heavy bleeding increasing from previously. She has a known Left ectopic that she has been trying to manage with methotrexate, she got an
initial dose of MTX on 01/31 at which time US showed a 1.5cm left adnexal mass with a yolk sac c/w an ectopic . She then had f/u HCGs with TRANSPORTATION PLANNER at [facility] and they were still trending up 02/03: 14,111. 02/06: 14,791. she was advised to return
to the ER which she did on 02/06. She then got a 2nd dose of MTX on 02/06. At that time she was also offered surgical exploration as her HCG was so high and it was explained that there is a high risk for treatment failure, but she declined and opted
for a 2nd MTX dose. She then had another having HCG yesterday again with her private TRANSPORTATION PLANNER and it was approx 12,000. However today she started with the pain and her bleeding is increasing so she returned to ER.
Relevant Past Medical History: Other (Crohn's)
Relevant Social History: Negative
Relevant Family History: Negative
Relevant Past Surgical History: Positive for (Sinus Surgery, fractured finger)
Review of Systems
Review of Pertinent Systems: All Systems Negative
Medication
See Medication form for detailed medications: Yes
Medication List (including Herbals & OTC):
infliximab 100 mg intravenous solution (Remicade) 100 mg IV Q8W 09/16/21
Medications Reviewed: Yes
Allergies and Reactions
Patient has Allergies: No
Noted Allergies and Reactions:
Allergy/AdvReac Type Severity Reaction Status Date / Time
No Known Allergies Allergy Verified 02/07/24 12:12
Pertinent Physical Exam
All Other Systems: Negative
Abdomen: Other (ttp in the left abdomen)
Diagnosis / Assessment
28yo with Left ectopic s/p 2 doses of Methotrexate
Plan / Procedure
Explained to patient and my concern for persistence and what even appears to be progression of the between her two US and despite the two doses of methotrexate. While her HCGs are finally trending down it is still very high and
while I do not think she has a ruptured tube at this time, I think she is still at very high risk for tubal rupture and I again recommend proceeding with surgical management at this time. Patient now in agreement to proceed. the procedure was
reviewed in detail including risks of bleeding, infection, injury to surrounding structures, need for additional procedure and laparotomy. Post-op expectations also reviewed. consents signed. nurse supervisor insecticide and charge nurse made aware. Currently
2 cases pending in OR, patient is stable enough to wait.
Anesthesia/Sedation to be done by Anesthesia Provider: Yes
Vital Signs and Labs
-
Vital Signs and Labs:
Vital Signs
Temp Pulse Resp BP Pulse Ox
97.4 F 74 16 99/64 99
02/12/24 12:04 02/12/24 16:12 02/12/24 12:04 02/12/24 16:12 02/12/24 16:12
Lab Results
02/12/24 12:30
02/12/24 12:30
Sodium 138 mmol/L (135-145) 02/12/24 12:30
Potassium 3.7 mmol/L (3.5-5.1) 02/12/24 12:30
BUN 10 mg/dl (7-17) 02/12/24 12:30
Glucose 127 mg/dl (70-99) H 02/12/24 12:30
Calcium 9.3 mg/dl (8.4-10.2) 02/12/24 12:30
HCG Quant: 10,148
Imaging Data
-
Pelvic US:
The uterus measures 8.4 x 3.6 x 4.8 cm in size. The endometrium measures 7.7 mm in thickness on the transabdominal images and 6.6 mm in thickness on the transvaginal images. There is no evidence for gestational sac in the endometrial canal.
LEFT OVARY: The left ovary measures 2.8 x 1.6 x 3.3 cm in size on the transabdominal images and 2.4 x 1.7 x 2.9 cm in size on the transvaginal images. There is a 2.3 x 1.8 x 2.5 cm mass in the left adnexa adjacent to the left ovary which has a thick
hyperechoic rim consistent with a left adnexal ectopic . There is a yolk sac within the adnexal ectopic . There is a pole within the gestational sac measuring 0.3 cm in length predicting a gestational age of 6 weeks 0 days.
There is no evidence for heart rate. The wall of the ectopic demonstrates vascularity on color duplex evaluation. There is blood flow within the adjacent left ovary on color duplex evaluation and small follicles in the left ovary.
--- NOTE | 2024-02-12 18:26 | W.SUR.PREOP ---
Pre-Operative Surgical Note
-
I have examined this patient prior to the performance of the scheduled procedure.
The patient's condition is unchanged from the time of the current History and
Physical and the patient is able to undergo the scheduled procedure.
--- NOTE | 2024-02-12 20:31 | W.IMMPOSTOP ---
Surgical Immed Post Op Note
-
Primary Surgeon: Anthony
Assisting Surgeon: n/a
Pre-op Diagnosis: Left Ectopic
Post-op Diagnosis: Same
Procedure Performed: Diagnostic laparoscopy, left salpingectomy
Anesthesia Type: General
Specimen / Cultures: Left fallopian tube with ectopic
Estimated Blood Loss: 3
Complications: none apparent
Operative Findings: 1. moderate amount of blood in vagina, uterus sounded to 9cm 2. Left tube dilated, normal appearing right tube and normal ovaries 3. salpingectomy site hemostatic post procedure
== END 2024-02-12 21:25 | disposition home or self-care (01) ==
LOC: SDS 17:14
PROVIDERS: ATTENDING PHYSICIAN Obstetrics & Gynecology; EMERGENCY PHYSICIAN Emergency Medicine; FAMILY PHYSICIAN Family Medicine
DX: O00.102 Left tubal pregnancy without intrauterine pregnancy (principal)
CPT/HCPCS: 59151; 88305; 76801; 76817; 80048; 84702; 85025; 86850; 86900; 86901; 96361; 96374; 99285; C1776

== ENCOUNTER 2024-04-27 18:45 | Emergency (ER) | payer OTHER, SELFPAY ==
[2024-04-27 18:54] VITALS: BP 136/83
--- NOTE | 2024-04-27 18:55 | ED.GENMED ---
ED Provider Triage
<Melvin Beckman PA-C - Last Filed: 04/27/24 18:59>
-
Patient seen by provider in Triage?: Seen in Triage
Attestation: A medical screening examination has been initiated by a qualified medical provider. Based on the assessment performed at this time, it has been determined that an emergent medical condition may exist and the patient has been informed
that further medical evaluation and possible additional diagnostic testing may be needed.
HPI: Patient presenting to the emergency department for evaluation of persistent left-sided temporal headache that has been ongoing for approximately 1 week. Seen by ENT who wanted patient to obtain a CT scan however patient was having a difficult
time obtaining this and due to persistent pain decided to come to the ER instead. Notes no changes to her symptoms today but does note the pain continues. Reports ENT was wanting a CT scan of the sinuses. CT scan of the head and sinuses ordered.
Patient without any acute neurologic symptoms or vision changes.
GENERAL: Alert , in no apparent distress
EYE: No visual abnormalities.
NECK: Trachea midline
ENT: No visible abnormalities.
LUNGS: No acute respiratory distress
NEUROLOGICAL: Alert and oriented
SKIN: Skin intact. No visible changes.
MUSCULOSKELETAL: Moving extremities normally
PSYCH: Normal and appropriate interaction.
This is a medical evaluation conducted in person to initiate diagnostic evaluation and provide initial therapeutics. Please see further documentation by the treating clinician.
History of Present Illness
<Melvin Beckman PA-C - Last Filed: 04/27/24 18:59>
General
Chief Complaint: Headache
Time Seen by Provider: 04/27/24 20:44
<Sami Walden DO - Last Filed: 04/27/24 21:09>
History of Present Illness
History of Present Illness:
TIME OF INITIAL ENCOUNTER: 8:45 PM
HPI: Patient was seen by ENT who recommended CT imaging for further evaluation and the patient is already on steroids and Augmentin. She has been having left-sided head/facial pain for the past week. The pain radiates down to the left side of the
jaw. She has not been sleeping well and feels that her symptoms are worsening so she came to the emergency department. She does describe the discomfort as electrical shock sensation to left side of the face
EXAM:
GENERAL: Well appearing in no distress
HEENT: Moist oral mucosa, no obvious TMJ dysfunction on exam
CARDIOVASCULAR: No murmurs, normal heart rate, regular rhythm, No chest wall tenderness
PULMONARY: No respiratory distress, breath sounds are clear and equal
ABDOMEN: Soft with no peritoneal signs, no tenderness
NEUROLOGIC: Excellent strength all extremities, no coordination deficits
PSYCHIATRIC: Appropriate mental status, normal insight and judgement
EXTREMITIES: Nontender, no edema, moves all extremities equally
SKIN: No rash, no lesions
NUMBER AND COMPLEXITY OF PROBLEMS ADDRESSED AT THE ENCOUNTER
� Chronic conditions affecting care: Seizures, Crohn's
� Acute Exacerbation and/or Progression of Chronic Illness: This is an acute problem
� Differential Diagnosis includes: Sinusitis, trigeminal neuralgia, TMJ dysfunction, nonspecific headache, doubt migraine type of headache as she has no photophobia
AMOUNT AND/OR COMPLEXITY OF DATA TO BE REVIEWED AND ANALYZED
� I performed an independent evaluation of and my interpretation is:
EKG:
CT: CT sinuses imaging suggest mild bilateral maxillary sinus mucosal thickening; CT head unremarkable
X-rays:
Laboratory Studies:
Other:
� Review of other/old records: I reviewed labs from earlier this year which showed normal LFTs
� Clinical information was obtained by an independent historian: I spoke to at bedside
� Prescriptions/Medications Considered but not given:
� Further testing considered but not performed:
RISK OF COMPLICATIONS AND/OR MORBIDITY OR MORTALITY OF PATIENT MANAGEMENT
� Social determinants of health affecting care: Lives at home, is going to try to start getting soon
� Discussion with other providers:
� Escalation of care including admission/observation vs risk of discharge considered: We talked about the possibility of trigeminal neuralgia or even TMJ but I have lower suspicion for sinus disease. She may end up stopping the
steroid. She has not felt any better on the steroid. She has had poor sleep. She agrees to try the carbamazepine or at least take a prescription. I emphasized the need of not trying to get while on carbamazepine.
ANY OTHER UPDATES:
Past History
<Melvin Beckman PA-C - Last Filed: 04/27/24 18:59>
Past History
ED Past Medical History: Other (Known ectopic ) and Other (Crohn's disease)
ED Past Surgical History: None
Social History
Tobacco: Non-smoker
Alcohol: Occasional
Personal: Single
Living: alone
Phy Exam
<Sami Walden DO - Last Filed: 04/27/24 21:09>
Physical Exam
Physical Exam:
See HPI
Course
<Melvin Beckman PA-C - Last Filed: 04/27/24 18:59>
Orders/Labs/Results
Orders:
Orders
04/27/24 18:56
CT Head W/o Iv Contrast Urgent
Comment:
Reason For Exam: left sided temporal pain/sinus pain
CT Sinuses W/o Iv Contrast Urgent
Comment:
Reason For Exam: sent by ENT, increasing pain
Vital Signs
Initial and Last Documented VS:
Initial Vital Signs
Temp Pulse Resp BP Pulse Ox
98.4 F 89 18 136/83 99
04/27/24 18:54 04/27/24 18:54 04/27/24 18:54 04/27/24 18:54 04/27/24 18:54
Last Documented Vital Signs
Temp Pulse Resp BP Pulse Ox
98.4 F 72 18 124/86 99
04/27/24 18:54 04/27/24 20:51 04/27/24 20:51 04/27/24 20:51 04/27/24 20:51
<Sami Walden DO - Last Filed: 04/27/24 21:09>
Orders/Labs/Results
Orders:
Orders
04/27/24 18:56
CT Head W/o Iv Contrast Urgent
Comment:
Reason For Exam: left sided temporal pain/sinus pain
CT Sinuses W/o Iv Contrast Urgent
Comment:
Reason For Exam: sent by ENT, increasing pain
Vital Signs
Initial and Last Documented VS:
Initial Vital Signs
Temp Pulse Resp BP Pulse Ox
98.4 F 89 18 136/83 99
04/27/24 18:54 04/27/24 18:54 04/27/24 18:54 04/27/24 18:54 04/27/24 18:54
Last Documented Vital Signs
Temp Pulse Resp BP Pulse Ox
98.4 F 72 18 124/86 99
04/27/24 18:54 04/27/24 20:51 04/27/24 20:51 04/27/24 20:51 04/27/24 20:51
<Sami Walden DO - Last Filed: 04/27/24 21:09>
*Critical Care Note
Total Time (30-74mins, 75-104mins- exclusive of procedures): Not Applicable
ED Attending Note
<Melvin Beckman PA-C - Last Filed: 04/27/24 18:59>
-
Portions of this chart may have been created with voice recognition software.� Occasional wrong word or��sound alike� substitutions may have occurred due to the inherent limitations of voice recognition software.
Discharge Plan
Departure
Patient Disposition: Home (Routine Discharge)
Date of Disposition: 04/27/24
Time of Disposition: 20:59
Patient with high blood pressure during this ER visit?: Yes
Discharge Problem:
Trigeminal neuralgia
Instructions: Trigeminal neuralgia, BLOOD PRESSURE
Prescriptions:
New
carbamazepine 200 mg tablet
200 mg PO DAILY Qty: 30 0RF
No Action
infliximab [Remicade] 100 MG/10 ML recon soln
100 mg IV Q8W
ibuprofen 600 mg tablet
600 mg PO Q6H PRN (Reason: pain/cramping) Qty: 30 0RF
oxycodone-acetaminophen [Endocet] 5-325 mg tablet
1 tab PO Q4H PRN (Reason: pain) Qty: 7 0RF
Referrals:
Magaly Lincoln MD [Active] - Next open appointment
Activity Restrictions/Additional Instructions:
Your symptoms possibly may be related to trigeminal neuralgia. I have placed you on a low-dose of carbamazepine (Tegretol) just once a day to start. It is also possible your symptoms could be related to TMJ. Do not try to get if you take
carbamazepine. I reviewed your recent liver function test and they were normal. I have also given you the contact information for a local neurologist. CAT scan of the brain was unremarkable. CAT scan of the sinuses showed 'mild bilateral
maxillary sinus mucosal thickening'.
Interventions
Interventions:
*Risk Screen - Suicide Last Done: 04/27/24 18:48
*General Assessment Last Done: 04/27/24 18:54
*Neglect/Abuse Screening Last Done: 04/27/24 18:54
*ED COVID-19 Vaccine History Last Done: 04/27/24 18:54
ED- Neurological Assessment Last Done: 04/27/24 20:47
Discharge Date and Time
Print Language: HAITIAN
[2024-04-27 20:51] VITALS: BP 124/86
== END 2024-04-27 21:28 | disposition home or self-care (01) ==
LOC: EMR 18:45
PROVIDERS: EMERGENCY PHYSICIAN Emergency Medicine; FAMILY PHYSICIAN Family Medicine
DX: G50.0 Trigeminal neuralgia (principal)
CPT/HCPCS: 99284; 70450; 70486

== ENCOUNTER 2024-06-04 20:49 | Emergency (ER) | payer OTHER, SELFPAY ==
[2024-06-04 21:01] VITALS: BP 136/82
[2024-06-04 21:26] LABS: Hemoglobin 12.3 g/dL (12.0-16.0); Mean Corp Hgb Conc. 34.2 g/dL (33.0-37.0); Mean Corpuscular Hgb 30.3 pg (27.0-31.0); Mean Corpuscular Volume 88.7 fL (81.0-99.0); Mean Platelet Volume 11.2 fL (7.4-10.4); Platelet Count 236 10^3/uL (130-400); Red Blood Cell Count 4.06 10^6/uL (4.20-5.40); Red Cell Dist. Width 12.2 % (11.5-14.5); White Blood Cell Count 10.2 10^3/uL (4.8-10.8)
[2024-06-04 21:32] LABS: ALT (SGPT) 17 U/L (0-35); AST (SGOT) 21 U/L (14-36); Albumin 4.4 g/dl (3.5-5.0); Alkaline Phosphatase 50 U/L (38-126); Blood Urea Nitrogen 13 mg/dl (7-17); Carbon Dioxide 24 mmol/L (22-30); Chloride 104 mmol/L (98-107); Glucose 136 mg/dl (70-99); Potassium 3.7 mmol/L (3.5-5.1); Sodium 142 mmol/L (135-145); Total Bilirubin 0.3 mg/dl (0.2-1.3); Total Protein 7.2 g/dl (6.3-8.2); eGFR > 60.00
[2024-06-04 21:45] LABS: % Basophils 0.5 % (0-2); % Eosinophils 1.8 % (0-6); % Immature Granulocytes 0.2 % (0-0.5); % Lymphocytes 42.3 % (20.5-51.1); % Monocytes 7.1 % (1.7-9.3); % Neutrophils 48.1 % (42.2-75.2); Absolute Basophils 0.1 10^3/uL (0-0.2); Absolute Eosinophils 0.2 10^3/uL (0-0.7); Absolute Lymphocytes 4.3 10^3/uL (1.2-3.4); Absolute Monocytes 0.7 10^3/uL (0.1-0.6); Absolute Neutrophils 4.9 10^3/uL (1.4-6.5); Nucleated Red Blood Cells % 0 %
[2024-06-04 21:48] LABS: Beta HCG Quantitative 71.11 mIU/ml
--- NOTE | 2024-06-04 23:43 | ED.GENMED ---
History of Present Illness
General
Chief Complaint: Problems
Source: patient
Exam Limitations: none
Time Seen by Provider: 06/04/24 22:08
Nursing documentation reviewed up to this point in time: agreed with
History of Present Illness
History of Present Illness:
Patient, G2, P1, last menstrual cycle 1 month ago, positive home test, status post ectopic requiring oophorectomy in January 2024, presents to ED secondary to breast tenderness, associated with vaginal bleeding, described as
spotting. Denies abdominal pain. Denies nausea or vomiting. Denies fever or chills. Denies trauma. Patient has on initial appointment with her [employer] physician next month.
Past History
Past History
ED Past Medical History: Other (Known ectopic ) and Other (Crohn's disease)
ED Past Surgical History: None
Social History
Tobacco: Non-smoker
Alcohol: Occasional
Personal: Single
Living: alone
Review of Systems
Review of Systems
Allergies reviewed?: Yes
All Other Systems: ROS reviewed and negative except as documented in HPI and ROS
Constitutional: Reports no symptoms; Denies fever
Respiratory: Denies trouble breathing
ABD/GI: Reports no symptoms; Denies abdominal pain, nausea or vomiting
: Reports bleeding
Musculoskeletal: Reports no symptoms
Skin: Reports no symptoms
Neurological: Reports no symptoms; Denies dizzy
Phy Exam
Physical Exam
Physical Exam:
Physical Exam
General: no apparent distress, not acutely ill. afebrile
Head: nc/at. eomi
Neck: supple. normal range of motion
Abdomen: normal bowel sounds. not tender. no distention
Neuro: alert and oriented. no focal neurological deficits
Skin: no rash
Psychiatric: well kept. interactive and cooperative
Extremities: no edema. no calf tenderness.
Course
Orders/Labs/Results
Orders:
Orders
06/04/24 21:10
Complete Blood Count/With Diff Urgent
Comprehensive Metabolic Panel Urgent
HCG, Beta Quantitative [Beta HCG Quantitative] Urgent
Is this a screen?: No
06/04/24 21:34
US W Transvaginal Stat
Reason For Exam: pvb
Abnormal Lab Results
06/04/24
21:10
RBC 4.06 L 10^6/uL
(4.20-5.40)
Hct 36.0 L %
(37.0-47.0)
MPV 11.2 H fL
(7.4-10.4)
Absolute Lymphs (auto) 4.3 H 10^3/uL
(1.2-3.4)
Absolute Monos (auto) 0.7 H 10^3/uL
(0.1-0.6)
Glucose 136 H mg/dl
(70-99)
06/04/24 21:10
06/04/24 21:10
Vital Signs
Initial and Last Documented VS:
Initial Vital Signs
Temp Pulse Resp BP Pulse Ox
98.5 F 83 18 136/82 99
06/04/24 21:01 06/04/24 21:01 06/04/24 21:01 06/04/24 21:01 06/04/24 21:01
Last Documented Vital Signs
Temp Pulse Resp BP Pulse Ox
98.5 F 79 16 122/75 100
06/04/24 21:01 06/05/24 00:04 06/05/24 00:04 06/05/24 00:04 06/05/24 00:04
Information
Weeks gestation: Weeks: (5 wks)
Location: N/A
MDM/Problems Addressed
MDM/Problems Addressed:
Blood type: B+ from previous blood work.
H&H stable. Serum beta-hCG level noted.
Pelvic ultrasound report reviewed and discussed with patient and family at bedside. Advised to contact her [employer] physician in a.m. for reevaluation, including hormone level. Patient otherwise is afebrile, hemodynamically stable, and appears
comfortable, at time of discharge.
*Critical Care Note
Total Time (30-74mins, 75-104mins- exclusive of procedures): Not Applicable
ED Attending Note
-
Portions of this chart may have been created with voice recognition software.� Occasional wrong word or��sound alike� substitutions may have occurred due to the inherent limitations of voice recognition software.
Discharge Plan
Departure
Patient Disposition: Home (Routine Discharge)
Date of Disposition: 06/04/24
Time of Disposition: 23:50
Patient with high blood pressure during this ER visit?: Yes
Condition: Good
Discharge Problem:
Threatened miscarriage
Instructions: Threatened Miscarriage (DC)
Prescriptions:
No Action
infliximab [Remicade] 100 MG/10 ML recon soln
100 mg IV Q8W
ibuprofen 600 mg tablet
600 mg PO Q6H PRN (Reason: pain/cramping) Qty: 30 0RF
oxycodone-acetaminophen [Endocet] 5-325 mg tablet
1 tab PO Q4H PRN (Reason: pain) Qty: 7 0RF
carbamazepine 200 mg tablet
200 mg PO DAILY Qty: 30 0RF
Referrals:
Michael Patrick MD [Family Provider] -
Heidi Munoz MD [Active] -
Activity Restrictions/Additional Instructions:
As discussed, please follow-up with your [employer] physician for reevaluation, including repeat blood work. Please return to ED immediately with worsening symptoms, i.e. fever/worsening pain/increased vaginal bleeding.
Interventions
Interventions:
*Risk Screen - Suicide Last Done: 06/04/24 21:01
*General Assessment Last Done: 06/04/24 21:01
*Neglect/Abuse Screening Last Done: 06/04/24 21:01
ED- Fall Risk Assessment Last Done: 06/04/24 21:49
*ED COVID-19 Vaccine History Last Done: 06/04/24 21:01
*Nursing Disposition Last Done: 06/05/24 00:04
ED-Female Genitourinary Assessment Last Done: 06/04/24 21:49
Discharge Date and Time
Discharge Date/Time: 06/05/24 00:05
Print Language: FRISIAN
[2024-06-05 00:04] VITALS: BP 122/75
== END 2024-06-05 00:05 | disposition home or self-care (01) ==
LOC: EMR 20:49
PROVIDERS: Emergency Medicine; EMERGENCY PHYSICIAN Emergency Medicine; FAMILY PHYSICIAN Family Medicine
DX: O20.0 Threatened abortion (principal); K50.90 Crohn's disease, unspecified, without complications; Z87.59 Personal history of other complications of pregnancy, childbirth and the puerperium; Z90.721 Acquired absence of ovaries, unilateral
CPT/HCPCS: 99284; 76801; 76817; 80053; 84702; 85025